=== PATIENT | female | born 1965 | race Hispanic/Latino ===

== ENCOUNTER 2017-10-31 13:56 | Emergency (ER) | payer BC, OTHER ==
[2017-10-31] MEDS ORDERED: ACETAMINOPHEN EXTRA STRENGTH 500 MG TABLET ONE (14:57)
== END 2017-10-31 15:09 | disposition home or self-care (01) ==
LOC: EDH 13:56
DX: S60.221A Contusion of right hand, initial encounter (principal); W23.0XXA Caught, crushed, jammed, or pinched between moving objects, initial encounter; Y93.89 Activity, other specified; Y92.69 Other specified industrial and construction area as the place of occurrence of the external cause; Y99.8 Other external cause status
CPT/HCPCS: 29125; 73130

== ENCOUNTER 2017-12-30 22:43 | Inpatient (IN) | payer OTHER, SELFPAY ==
[~2017-12-30] VITALS: Ht 149.9 cm; Wt 61.7 kg
[2017-12-30 23:04] LABS: BASOPHILS % (AUTO) 0.5 % (0.0-5.0); HEMATOCRIT 39.6 % (36-48); LYMPHOCYTES % (AUTO) 6.7 % (21.0-51.0); MEAN CORPUSCULAR HEMOGLOBIN 30.5 pg (27.0-33.0); MEAN CORPUSCULAR HGB CONC 33.9 g/dL (32.0-36.0); MEAN CORPUSCULAR VOLUME 90.1 fL (79-99); MONOCYTES % (AUTO) 4.6 % (3.0-13.0); NEUTROPHILS % (AUTO) 88.2 % (40.0-77.0); PLATELET COUNT (AUTO) 334 K/uL (130-400); RED CELL DISTRIBUTION WIDTH 13.2 % (11.0-15.5); WHITE BLOOD COUNT (AUTO) 16.1 K/uL (4.8-10.8)
[2017-12-30 23:15] LABS: CARBON DIOXIDE 27 mmol/L (21-32); CHLORIDE 98 mmol/L (101-111); CREATININE 0.9 mg/dL (0.5-1.5); GLOMERULAR FILTR. RATE CALC 70 mL/min (>60); GLUCOSE,RANDOM 117 mg/dL (70-105); POTASSIUM 4.2 mmol/L (3.5-5.1); SODIUM SERUM 134 mmol/L (136-145); UREA NITROGEN, BLOOD 10 mg/dL (7-18)
[2017-12-30 23:18] LABS: PARTIAL THROMBOPLASTIN TIME 26.9 SEC (26.3-35.5); PROTHROMBIN TIME 10.5 SEC (9.6-11.6)
[2017-12-30] MEDS ORDERED: ACETAMINOPHEN EXTRA STRENGTH 500 MG TABLET ONE (23:18)
[2017-12-30 23:29] LABS: ALANINE AMINOTRANSFERASE 21 U/L (12-78); ALBUMIN 3.6 g/dL (3.5-5.0); ASPARTATE AMINOTRANSFERASE 23 U/L (10-37); BILIRUBIN,TOTAL 0.4 mg/dL (0.2-1.0); CREATINE KINASE MB < 0.5 ng/mL (0.5-3.6); CREATINE KINASE, TOTAL 116 U/L (21-232); MYOGLOBIN 48 ng/mL (10-92); TOTAL PROTEIN, SERUM 8.1 g/dL (6.0-8.3); TROPONIN I < 0.04 ng/mL (0.00-0.06)
[2017-12-30] MEDS ORDERED: CEFTRIAXONE SODIUM 2 GM VIAL ONE (23:34)
[2017-12-30] MEDS ORDERED: SODIUM CHLORIDE 0.9% 1000ML 2,000 ML IV ONE (23:34)
[2017-12-30] MEDS ORDERED: ONDANSETRON HCL MDV 20ML 2 MG/ML VIAL ONE (23:50)
[2017-12-31] VITALS (29 sets, daily range): BP systolic 78–113; BP diastolic 46–68
[2017-12-31 01:01] LABS: APPEARANCE,URINE Clear (CLEAR); BILIRUBIN,URINE Negative (NEGATIVE); COLOR,URINE Yellow (YELLOW); GLUCOSE, URINE (UA) Negative (NEGATIVE); KETONES,URINE Trace mg/dL (NEGATIVE); LEUKOCYTE ESTERASE ,URINE Negative (NEGATIVE); NITRATE,URINE Negative (NEGATIVE); OCCULT BLOOD,URINE Negative (NEGATIVE); PH,URINE >=9.0 (5.0-8.0); PROTEIN,URINE Negative (NEGATIVE)
[2017-12-31] MEDS: SODIUM CHLORIDE 0.9% 1000ML 1,000 ML IV SCH ×5 (04:15→20:19)
[2017-12-31] MEDS ORDERED: SODIUM CHLORIDE 0.9% 1000ML 1,000 ML IV ONE (04:37)
[2017-12-31] MEDS ORDERED: ONDANSETRON HCL MDV 20ML 2 MG/ML VIAL ONE (04:37)
[2017-12-31] MEDS ORDERED: CEFTRIAXONE SODIUM 2 GM VIAL IVP SCH (05:00)
[2017-12-31 05:47] LABS: BASOPHILS % (AUTO) 0.1 % (0.0-5.0); HEMATOCRIT 38.3 % (36-48); LYMPHOCYTES % (AUTO) 10.6 % (21.0-51.0); MEAN CORPUSCULAR HGB CONC 33.9 g/dL (32.0-36.0); MEAN CORPUSCULAR VOLUME 91.6 fL (79-99); MONOCYTES % (AUTO) 4.2 % (3.0-13.0); NEUTROPHILS % (AUTO) 85.1 % (40.0-77.0); PLATELET COUNT (AUTO) 276 K/uL (130-400); RED BLOOD CELL COUNT(AUTO) 4.18 MIL/uL (4.00-5.50); RED CELL DISTRIBUTION WIDTH 13.2 % (11.0-15.5); WHITE BLOOD COUNT (AUTO) 14.7 K/uL (4.8-10.8)
[2017-12-31 06:00] LABS: CREATININE 0.8 mg/dL (0.5-1.5); POTASSIUM 4.2 mmol/L (3.5-5.1)
[2017-12-31] MEDS ORDERED: PNEUMOCOCCAL VACCINE POLYVALENT 0.5 ML/VIAL [PPV] IM SCH (07:00)
[2017-12-31] MEDS ORDERED: FLU VACC QS2017-18 36MOS UP/PF 60 MCG/0.5 ML ML IM NR (07:00)
[2017-12-31] MEDS: ACETAMINOPHEN 325 MG TAB PO PRN ×2 (09:27→17:22)
[2017-12-31] MEDS ORDERED: SODIUM CHLORIDE 0.9% 1,000 ML IV SCH (11:00)
[2017-12-31] MEDS ORDERED: LEVOFLOXACIN 500 MG/D5W 100 ML 100 ML IV SCH (11:30)
[2017-12-31] MEDS: DOXYCYCLINE 100MG+NS 250ML 250 ML IV SCH ×2 (13:14→23:32)
[2017-12-31] MEDS ORDERED: ZOSYN 3.375GM+NS 50ML 50 ML IV SCH (14:00)
[2017-12-31] MEDS ORDERED: MEPERIDINE HCL/PF 25 MG/0.5 ML AMPUL IVP PRN (14:00)
[2017-12-31] MEDS ORDERED: PHARMACY COMMUNICATION MISC SCH (14:00)
[2017-12-31] MEDS ORDERED: SODIUM CHLORIDE 0.9% 1000ML 2,500 ML IV STA (14:29)
[2017-12-31] MEDS ORDERED: SODIUM CHLORIDE 0.9% 1000ML 2,000 ML IV SCH (14:30)
[2017-12-31] MEDS ORDERED: VANCOMYCIN 1.5 GM in SODIUM CHLORIDE 0.9% 250 ML IV SCH (15:15)
[2017-12-31 15:35] LABS: ABG BASE EXCESS -4.6 mmol/L (-2.0-3.0); ABG HCO3 19.4 mmol/L (21.0-28.0); ABG OXYGEN SATURATION 93.7 % (95.0-99.0); ABG PCO2 33 mmHg (32-45)
[2017-12-31] MEDS: ONDANSETRON HCL MDV 20ML 2 MG/ML VIAL IVP PRN (16:15)
[2017-12-31] MEDS: FAMOTIDINE 20MG TAB 20 MG TAB PO SCH (20:13)
[2017-12-31] MEDS: OSELTAMIVIR PHOSPHATE 75 MG CAP PO SCH (20:13)
[2018-01-01] VITALS (23 sets, daily range): BP systolic 78–124; BP diastolic 37–80
[2018-01-01] MEDS: SODIUM CHLORIDE 0.9% 1000ML 1,000 ML IV SCH ×5 (00:16→22:50)
[2018-01-01 03:58] LABS: HEMATOCRIT 31.3 % (36-48); MEAN CORPUSCULAR HGB CONC 34.9 g/dL (32.0-36.0); MEAN CORPUSCULAR VOLUME 91.6 fL (79-99); PLATELET COUNT (AUTO) 227 K/uL (130-400); RED BLOOD CELL COUNT(AUTO) 3.41 MIL/uL (4.00-5.50); RED CELL DISTRIBUTION WIDTH 13.3 % (11.0-15.5); WHITE BLOOD COUNT (AUTO) 15.4 K/uL (4.8-10.8)
[2018-01-01 04:17] LABS: CREATININE 0.5 mg/dL (0.5-1.5); MAGNESIUM 1.7 mg/dL (1.80-2.40); POTASSIUM 3.3 mmol/L (3.5-5.1)
[2018-01-01] MEDS ORDERED: POTASSIUM CHLORIDE 10% ELIXIR 20 MEQ/15 ML UDCUP PO PRN (05:30)
[2018-01-01] MEDS ORDERED: LIDOCAINE HCL-MPF 1% 2ML VIAL IVP PRN (05:30)
[2018-01-01] MEDS ORDERED: POTASSIUM CHLORIDE 20MEQ/100ML 100 ML IV PRN (05:30)
[2018-01-01] MEDS ORDERED: POTASSIUM CHLORIDE 20 MEQ ERTAB PO PRN (05:30)
[2018-01-01] MEDS: MAGNESIUM 2GM PREMIX 50ML 50 ML IV PRN (06:37)
[2018-01-01] MEDS: ACETAMINOPHEN 325 MG TAB PO PRN ×3 (06:43→20:01)
[2018-01-01] MEDS: FAMOTIDINE 20MG TAB 20 MG TAB PO SCH ×2 (08:17→20:00)
[2018-01-01] MEDS: OSELTAMIVIR PHOSPHATE 75 MG CAP PO SCH ×2 (08:17→20:00)
[2018-01-01] MEDS: ENOXAPARIN SODIUM 40 MG/0.4 ML SYRINGE SQ SCH (08:18)
[2018-01-01] MEDS ORDERED: VANCOMYCIN 500MG+NS 100ML 100 ML IV SCH (09:00)
[2018-01-01] MEDS: DOXYCYCLINE 100MG+NS 250ML 250 ML IV SCH ×2 (14:09→22:35)
[2018-01-02] VITALS (12 sets, daily range): BP systolic 97–123; BP diastolic 53–86
[2018-01-02] MEDS: ACETAMINOPHEN 325 MG TAB PO PRN ×2 (02:54→07:31)
[2018-01-02 03:54] LABS: BASOPHILS % (AUTO) 0.2 % (0.0-5.0); HEMATOCRIT 32.2 % (36-48); LYMPHOCYTES % (AUTO) 34.1 % (21.0-51.0); MEAN CORPUSCULAR HEMOGLOBIN 30.5 pg (27.0-33.0); MEAN CORPUSCULAR HGB CONC 33.4 g/dL (32.0-36.0); MEAN CORPUSCULAR VOLUME 91.4 fL (79-99); MONOCYTES % (AUTO) 9.3 % (3.0-13.0); NEUTROPHILS % (AUTO) 54.4 % (40.0-77.0); PLATELET COUNT (AUTO) 244 K/uL (130-400); RED BLOOD CELL COUNT(AUTO) 3.52 MIL/uL (4.00-5.50); RED CELL DISTRIBUTION WIDTH 13.5 % (11.0-15.5); WHITE BLOOD COUNT (AUTO) 7.6 K/uL (4.8-10.8)
[2018-01-02 04:24] LABS: ALBUMIN 2.4 g/dL (3.5-5.0); BILIRUBIN,TOTAL 0.2 mg/dL (0.2-1.0); CREATININE 0.5 mg/dL (0.5-1.5); MAGNESIUM 1.7 mg/dL (1.80-2.40); PHOSPHORUS 1.9 mg/dL (2.5-4.9); POTASSIUM 3.3 mmol/L (3.5-5.1); THYROID STIMULATING HORMONE 2.81 uIU/mL (0.36-3.74); TOTAL PROTEIN, SERUM 6.1 g/dL (6.0-8.3)
[2018-01-02] MEDS: SODIUM CHLORIDE 0.9% 1000ML 1,000 ML IV SCH ×2 (05:20→11:59)
[2018-01-02] MEDS: FAMOTIDINE 20MG TAB 20 MG TAB PO SCH ×2 (07:30→22:41)
[2018-01-02] MEDS: OSELTAMIVIR PHOSPHATE 75 MG CAP PO SCH ×2 (07:30→22:41)
[2018-01-02] MEDS: ENOXAPARIN SODIUM 40 MG/0.4 ML SYRINGE SQ SCH (07:30)
[2018-01-02] MEDS: ONDANSETRON HCL MDV 20ML 2 MG/ML VIAL IVP PRN (10:24)
[2018-01-02] MEDS: DOXYCYCLINE 100MG+NS 250ML 250 ML IV SCH (11:59)
[2018-01-02] MEDS ORDERED: IPRATROPIUM/ALBUTEROL SULFATE 3 ML SOLUTION IH PRN (14:15)
[2018-01-02] MEDS ORDERED: POTASSIUM PHOSPHATE 20 MMOL in SODIUM CHLORIDE 0.9% 250 ML IV ONE (14:30)
[2018-01-02] MEDS ORDERED: MAGNESIUM SULFATE 1 GM in SODIUM CHLORIDE 0.9% 50 ML IV SCH (15:00)
[2018-01-02] MEDS ORDERED: METHYLPREDNISOLONE SOD SUCC 40MG/ML 1ML IVP SCH (21:00)
[2018-01-03] VITALS: BP 126/77
[2018-01-03] MEDS: DOXYCYCLINE 100MG+NS 250ML 250 ML IV SCH ×2 (00:01→16:19)
[2018-01-03 04:00] VITALS: BP 120/68
[2018-01-03 06:03] LABS: HEMATOCRIT 35.3 % (36-48); MEAN CORPUSCULAR HEMOGLOBIN 30.7 pg (27.0-33.0); MEAN CORPUSCULAR HGB CONC 33.7 g/dL (32.0-36.0); MEAN CORPUSCULAR VOLUME 91.1 fL (79-99); PLATELET COUNT (AUTO) 292 K/uL (130-400); RED BLOOD CELL COUNT(AUTO) 3.88 MIL/uL (4.00-5.50); WHITE BLOOD COUNT (AUTO) 6.8 K/uL (4.8-10.8)
[2018-01-03 06:19] LABS: CREATININE 0.5 mg/dL (0.5-1.5); MAGNESIUM 1.8 mg/dL (1.80-2.40); PHOSPHORUS 3.4 mg/dL (2.5-4.9); POTASSIUM 4.3 mmol/L (3.5-5.1)
[2018-01-03] MEDS: SODIUM CHLORIDE 0.9% 1000ML 1,000 ML IV SCH (06:34)
[2018-01-03 08:00] VITALS: BP 110/69
[2018-01-03] MEDS: FAMOTIDINE 20MG TAB 20 MG TAB PO SCH (10:01)
[2018-01-03] MEDS: OSELTAMIVIR PHOSPHATE 75 MG CAP PO SCH (10:01)
[2018-01-03] MEDS: ENOXAPARIN SODIUM 40 MG/0.4 ML SYRINGE SQ SCH (10:02)
[2018-01-03 12:00] VITALS: BP 107/61
[2018-01-03 16:00] VITALS: BP 118/78
[2018-01-03] MEDS: MAGNESIUM 2GM PREMIX 50ML 50 ML IV PRN (16:19)
[2018-01-05 15:23] LABS: ROCKY MT SPOTTED FEVER IGG <1:64 (Neg:<1:64); TYPHUS FEVER AB IGG <1:64 (Neg:<1:64)
== END 2018-01-03 18:45 | disposition home or self-care (01) | DRG 871 ==
LOC: EDH 22:43 → OBSVTOIN 22:44 → EDHIP 22:44 → 3CH 12-31 04:06 → 2BH 12-31 14:08 → 3AH 01-02 17:56
PROVIDERS: ADMIT Internal Medicine Nephrology; ATTEND Internal Medicine Nephrology
PROC: 3E0234Z Introduction of Serum, Toxoid and Vaccine into Muscle, Percutaneous Approach (ICD-10-PCS; principal; 2017-12-31)
PROC: 3E0234Z Introduction of Serum, Toxoid and Vaccine into Muscle, Percutaneous Approach (ICD-10-PCS; 2017-12-31)
DX: A41.89 Other specified sepsis (principal); R65.21 Severe sepsis with septic shock; E46 Unspecified protein-calorie malnutrition; E87.1 Hypo-osmolality and hyponatremia; D64.9 Anemia, unspecified; E11.9 Type 2 diabetes mellitus without complications; B34.9 Viral infection, unspecified; E86.1 Hypovolemia; E87.6 Hypokalemia; I10 Essential (primary) hypertension; W57.XXXA Bitten or stung by nonvenomous insect and other nonvenomous arthropods, initial encounter; Z68.27 Body mass index [BMI] 27.0-27.9, adult; Z23 Encounter for immunization; Z82.49 Family history of ischemic heart disease and other diseases of the circulatory system; Z83.3 Family history of diabetes mellitus
CPT/HCPCS: 36415; 36600; 70450; 71045; 74176; 80048; 80053; 80339; 81003; 82550; 82553; 82803; 82948; 83605; 83735; 83874; 84100; 84443; 84484; 85025; 85027; 85610; 85730; 86000; 86701; 86757; 87040; 87088; 87390; 87633; 87804; 87880; 93005; 93306; 94664; 99291; J0696; J1650; J1956; J2920; J3370; J3475; J3490; J7030

== ENCOUNTER 2019-12-26 01:00 | Emergency (ER) | payer OTHER, SELFPAY ==
[2019-12-26] MEDS ORDERED: LIDOCAINE HCL 2% VISCOUS 15 ML UDCUP ONE (01:43)
[2019-12-26] MEDS ORDERED: MAG HYDROX/AL HYDROX/SIMETH ES 30 ML SUSP UDCUP ONE (01:43)
[2019-12-26] MEDS ORDERED: PREDNISONE 20 MG TABLET ONE (01:44)
[2019-12-26] MEDS ORDERED: AZITHROMYCIN 250 MG TABLET PO ONE (01:44)
== END 2019-12-26 02:06 | disposition home or self-care (01) ==
LOC: EDH 01:00 → EDHIP 01:01 → UNDOADMIN 01:01 → EDHIP 02:06 → EDH 02:06
DX: J40 Bronchitis, not specified as acute or chronic (principal); Z87.891 Personal history of nicotine dependence

== ENCOUNTER 2022-03-29 04:09 | Emergency (ER) | payer OTHER ==
[2022-03-29] MEDS ORDERED: ONDANSETRON ODT 4MG TAB ONE (04:20)
[2022-03-29] MEDS ORDERED: ACETAMINOPHEN 325 MG TAB ONE (04:20)
[2022-03-29] MEDS ORDERED: IBUPROFEN 600 MG TABLET ONE (04:20)
[2022-03-29 04:33] VITALS: BP 119/87
[2022-03-29] MEDS ORDERED: KETOROLAC 15MG/ML VIAL (15MG/ML) IV ONE (06:00)
[2022-03-29] MEDS ORDERED: D-ME118S47 PO (06:05)
[2022-03-29] MEDS ORDERED: ONDA4TAB10 PO (06:05)
[2022-03-29] MEDS ORDERED: IBUP-2070 PO (06:05)
== END 2022-03-29 07:14 | disposition home or self-care (01) ==
LOC: EDH 04:09
DX: U07.1 COVID-19 (principal)
CPT/HCPCS: 93005; 96374; 99284; J1885